=== PATIENT | female | born 1945 | race Caucasian/White ===

== ENCOUNTER 2017-01-20 14:55 | Emergency (ER) | payer OTHER ==
[~2017-01-20] VITALS: Ht 149.9 cm; Wt 75.5 kg
[~2017-01-20 14:55] MED LIST: ACCUNEB0.63 MG/3 IH; AGGRENOX1 CAPSULE PO; ALAVERT10 M1 PO; ALBUTEROL; ANUCORT-HC25 MG RC; Aspirin PO; BACTRIM,SEPT1 TABLET PO; BISACODYL; BUDESONIDE0.5 MG/2 M IH; CHRONULAC,CEPHUL1 ML PO; Ceftin PO; Chronulac,Cephulac,E PO; Colace PO; DAILY VITAMIN1 EAC2 PO; DAILY VITE1 EAC1 PO; DEBROX15 ML BOTH EARS; DILANTIN; DILANTIN50 MG PO; DULCOLAX10 MG PR; DUONEB 2.5-0.5 M3 ML AEROSOL; DUONEBS IH; EAR WAX DROPS15 ML BOTH EARS; ENULOSE10 GM/15 M PO; FLEET ENEMA-AD118 ML PR; FOLIC ACID1 MG PO; FORTICAL,200 INTUNI NS; LACTULOSE10 GM/151 PO; LAMICTAL; LAMICTAL XR100 MG PO; LAMICTAL150 M1 PO; LAMOTRIGINE150 MG PO; LEVOTHROID,SYN0.2 MG PO; LEVOTHYROXINE112 MCG PO; LISINOPRIL; LOPERAMIDE2 MG PO; LORATADINE10 M2 PO; Lotrisone TP; METOCLOPRAMIDE H5 MG PO; METOPROLOL; METOPROLOL SUCC25 MG PO; METRO CREAM 0.745 GM TP; METRONIDAZOLE45 G1 TP; MIACALCIN4 ML NS; MIRALAX17 GM PO; MUCINEX600 MG PO; NYAMYC60 GM TP; OYST-CAL-500500 MG PO; OYSTER SHELL C500 M1 PO; PEDIADERM TA 0115 GM TP; PHENERGAN; PHENERGAN25 MG PR; PRAVACHOL80 MG PO; PRAVASTATIN; PRAVASTATIN SOD80 MG PO; PRINIVIL10 MG PO; PROCTOSOL-HC28.35 GM PR; PROMETHAZINE HC25 M1 PO; PROTONIX40 MG PO; PULMICORT1 MG/2 ML IH; REGLAN; REGLAN5 MG PO; SENNA PLUS TAB1 EACH PO; SSD25GM TP; SYNTHROID112 MCG PO; Synthroid PO; TRIAMCINOLONE A15 GM TP; TRILEPTAL; TRILEPTAL300 MG PO; TYLENOL REGULA325 MG PO; TYLENOL325 M1 PO; VITAMIN D31000 UNIT PO; VITAMIN D32000 UNI1 PO; ZONEGRAN100 MG PO; ZONISAMIDE100 MG PO
[2017-01-20] MEDS ORDERED: AUGMENTIN875 MG PO (16:15)
[2017-01-20] MEDS ORDERED: OFLOXACIN10 ML RIGHT EAR (16:37)
[2017-01-20 16:54] VITALS: BP 133/83
== END 2017-01-20 16:54 | disposition home or self-care (01) ==
LOC: EME 14:55
DX: H60.91 Unspecified otitis externa, right ear (principal); Z88.1 Allergy status to other antibiotic agents; F79 Unspecified intellectual disabilities; E03.9 Hypothyroidism, unspecified; E78.5 Hyperlipidemia, unspecified
CPT/HCPCS: 99281; 99283

== ENCOUNTER 2017-05-09 19:52 | Inpatient (IN) | payer OTHER ==
[~2017-05-09] VITALS: Ht 157.5 cm; Wt 82.0 kg
[~2017-05-09 19:52] MED LIST changes: +AUGMENTIN875 MG PO; +FUROSEMIDE20 MG PO; +MIDODRINE HCL5 MG PO; +OFLOXACIN10 ML RIGHT EAR; +PREDNISONE20 MG PO; +RISPERDAL1 MG PO
[2017-05-09 20:55] LABS: EOSINOPHIL (%) 1.1 % (0-5); EOSINOPHIL COUNT 0.1 K/uL (0-0.3); HEMATOCRIT 37.5 % (36.0-46.0); IMMATURE GRANULOCYTE (%) 1.6 % (0.0-0.7); IMMATURE GRANULOCYTE COUNT 0.2 K/uL; INSTRUMENT ABS NEUTROPHIL CT 9.8 K/uL; LYMPHOCYTE COUNT 0.8 K/uL (1.0-2.8); MCH 33.8 PG (29.0-34.0); MCHC 31.7 G/DL (30.0-36.0); MCV 106.5 FL (83-99); MEAN PLAT.VOLUME 10.5 uM^3 (9.5-12.4); MONOCYTE COUNT 0.6 K/uL (0-0.8); NEUTROPHIL (%) 85.2 % (45-76); NEUTROPHIL COUNT 9.8 K/uL (1.8-6.4); PLATELET COUNT 192 K/uL (156-360); RBC DIS.WIDTH-CV 14.6 % (11.8-14.6); RBC DIS.WIDTH-SD 58.1 % (39-53); RED BLOOD COUNT 3.52 M/uL (3.80-5.20); WHITE BLOOD COUNT 11.5 K/uL (4.1-10.2)
[2017-05-09 21:01] LABS: CHLORIDE 108 mEq/L (99-109); POTASSIUM 4.5 mEq/L (3.7-5.4); SODIUM 137 mEq/L (136-147)
[2017-05-09 21:02] LABS: GLUCOSE 221 mg/dL (70-99)
[2017-05-09 21:04] LABS: ANION GAP 10 MEQ/L (2-14)
[2017-05-09 21:06] LABS: GFR ESTIMATE (CALCULATED) > 59 mL/min/
[2017-05-09 21:07] LABS: UREA NITROGEN (BUN) 24 mg/dL (9-23)
[2017-05-09 21:13] LABS: BASE EXCESS -4.8 mEq/L (-3 to +3); BICARBONATE 20.5 mEq/L (22-26); CARBOXY HGB 1.4 % (0-5); METHEMOGLOBIN 0.8 % (0-1.5); PCO2 38 mm Hg (35-45); pH 7.34 (7.35-7.45)
[2017-05-09 21:14] LABS: COMMENTS - BLOOD GASES A+C+; DEVICE 840VENT; FI02 100 %; MODE SPONT; PEEP 5 CM/H20; PO2 467 mm Hg (80-100); PRES. SUPPORT 10 CM/H2O; SITE RR; TOTAL RESP RATE 30 resp/min
[2017-05-09 21:14] LABS: TROP-I INTERPRETATION NEGATIVE
[2017-05-09] MEDS ORDERED: LASIX20 MG PO (22:38)
[2017-05-10] VITALS (23 sets, daily range): BP systolic 0–122; BP diastolic 0–72
[2017-05-10 01:49] LABS: METH RESISTANT S AUREUS PCR NEGATIVE (NEGATIVE)
[2017-05-10 01:50] LABS: PROBE CHECK PASS; SPECIMEN PROCESSING CONTROL PASS
[2017-05-10 01:51] LABS: ADD MIUA? NO; BILIRUBIN NEGATIVE; BLOOD NEGATIVE; COLOR STRAW ((YELLOW)); GLUCOSE (STRIP) NEGATIVE; KETONES NEGATIVE; LEUKOCYTES NEGATIVE; NITRITE NEGATIVE; PROTEIN (STRIP) NEGATIVE; SPECIFIC GRAVITY 1.005 (1.000-1.030); UROBILINOGEN 0.2 MG/DL (0.2-1.0)
[2017-05-10 14:10] LABS: EOSINOPHIL (%) 0.6 % (0-5); HEMATOCRIT 36.4 % (36.0-46.0); IMMATURE GRANULOCYTE COUNT 0.1 K/uL; LYMPHOCYTE COUNT 0.8 K/uL (1.0-2.8); MCH 34.2 PG (29.0-34.0); MCHC 32.4 G/DL (30.0-36.0); MCV 105.5 FL (83-99); MEAN PLAT.VOLUME 10.5 uM^3 (9.5-12.4); MONOCYTE (%) 3.4 % (3-12); MONOCYTE COUNT 0.2 K/uL (0-0.8); NEUTROPHIL (%) 84.3 % (45-76); PLATELET COUNT 180 K/uL (156-360); RBC DIS.WIDTH-CV 14.4 % (11.8-14.6); RBC DIS.WIDTH-SD 55.9 % (39-53); RED BLOOD COUNT 3.45 M/uL (3.80-5.20); WHITE BLOOD COUNT 7.1 K/uL (4.1-10.2)
[2017-05-10 14:34] LABS: ANION GAP 14 MEQ/L (2-14); CHLORIDE 103 MEQ/L (99-109); GFR ESTIMATE (CALCULATED) > 59 mL/min/; GLUCOSE 227 mg/dL (70-99); SAMPLE HEMOLYSIS CHECK 0; SAMPLE ICTERIC CHECK 0; SAMPLE LIPEMIA CHECK 0; SODIUM 139 MEQ/L (136-147); UREA NITROGEN (BUN) 19 mg/dL (9-23)
[2017-05-10 14:48] LABS: MAGNESIUM 1.8 mg/dl (1.3-2.7); POTASSIUM 3.3 MEQ/L (3.7-5.4)
[2017-05-10 22:24] LABS: POINT-OF-CARE METER ID UU13113731
[2017-05-11] VITALS (12 sets, daily range): BP systolic 65–120; BP diastolic 41–68
[2017-05-11 05:34] LABS: HEMATOCRIT 33.7 % (36.0-46.0); MCH 33.9 PG (29.0-34.0); MCV 105.6 FL (83-99); MEAN PLAT.VOLUME 10.7 uM^3 (9.5-12.4); PLATELET COUNT 166 K/uL (156-360); RBC DIS.WIDTH-CV 14.1 % (11.8-14.6); RBC DIS.WIDTH-SD 55.7 % (39-53); RED BLOOD COUNT 3.19 M/uL (3.80-5.20); WHITE BLOOD COUNT 6.9 K/uL (4.1-10.2)
[2017-05-11 06:18] LABS: ANION GAP 11 MEQ/L (2-14); CHLORIDE 105 MEQ/L (99-109); GFR ESTIMATE (CALCULATED) > 59 mL/min/; GLUCOSE 229 mg/dL (70-99); SAMPLE HEMOLYSIS CHECK 0; SAMPLE ICTERIC CHECK 0; SAMPLE LIPEMIA CHECK 0; SODIUM 143 MEQ/L (136-147); UREA NITROGEN (BUN) 28 mg/dL (9-23)
[2017-05-11 06:19] LABS: POTASSIUM 4.1 MEQ/L (3.7-5.4)
[2017-05-11 12:28] LABS: POINT-OF-CARE METER ID UU14174217
[2017-05-11 16:51] LABS: POINT-OF-CARE METER ID UU14314084
[2017-05-11 21:34] LABS: POINT-OF-CARE METER ID UU14208750
[2017-05-12] VITALS: BP 120/61
[2017-05-12 04:00] VITALS: BP 116/70
[2017-05-12 06:26] LABS: POINT-OF-CARE METER ID UU14208750
[2017-05-12 07:17] VITALS: BP 120/66
[2017-05-12 12:00] VITALS: BP 104/56
[2017-05-12 12:16] LABS: POINT-OF-CARE METER ID UU14208750
[2017-05-12 15:46] VITALS: BP 116/55
[2017-05-12 16:32] LABS: POINT-OF-CARE METER ID UU14314084
[2017-05-12 20:14] VITALS: BP 122/58
[2017-05-12 21:46] LABS: POINT-OF-CARE METER ID UU14208750
[2017-05-12 22:48] LABS: POINT-OF-CARE METER ID UU14208750
[2017-05-13 01:27] VITALS: BP 95/51
[2017-05-13 04:37] VITALS: BP 122/61
[2017-05-13 05:45] LABS: POINT-OF-CARE METER ID UU14208750
[2017-05-13 07:26] LABS: ANION GAP 13 MEQ/L (2-14); CHLORIDE 102 MEQ/L (99-109); GFR ESTIMATE (CALCULATED) > 59 mL/min/; GLUCOSE 195 mg/dL (70-99); POTASSIUM 3.8 MEQ/L (3.7-5.4); SAMPLE HEMOLYSIS CHECK 0; SAMPLE ICTERIC CHECK 0; SAMPLE LIPEMIA CHECK 0; SODIUM 140 MEQ/L (136-147); UREA NITROGEN (BUN) 30 mg/dL (9-23)
[2017-05-13 08:00] VITALS: BP 106/61
[2017-05-13 11:13] VITALS: BP 125/77
[2017-05-13 12:30] LABS: POINT-OF-CARE METER ID UU14314084
[2017-05-13] MEDS ORDERED: LASIX40 MG PO (13:48)
== END 2017-05-13 14:54 | DRG 193 ==
LOC: EME → EDSEX 19:52 → EDBD 19:52 → EME 19:52 → EDOF 22:15 → 2EAST 22:15 → ENRESERV 22:15 → 4WEST 22:15 → ENRESERV 23:14 → 4WEST 23:47 → ENRESERV 05-11 11:16 → 2EAST 05-11 15:18
PROVIDERS: Emergency Medicine; Hospitalist; Specialist; Surgery
DX: J18.9 Pneumonia, unspecified organism (principal); I50.23 Acute on chronic systolic (congestive) heart failure; J96.01 Acute respiratory failure with hypoxia; G40.909 Epilepsy, unspecified, not intractable, without status epilepticus; G80.9 Cerebral palsy, unspecified; I11.0 Hypertensive heart disease with heart failure; E78.5 Hyperlipidemia, unspecified; K21.9 Gastro-esophageal reflux disease without esophagitis; I69.354 Hemiplegia and hemiparesis following cerebral infarction affecting left non-dominant side; E87.2 Acidosis; E03.9 Hypothyroidism, unspecified; D64.9 Anemia, unspecified; M81.0 Age-related osteoporosis without current pathological fracture; L30.4 Erythema intertrigo; Z66 Do not resuscitate; J45.909 Unspecified asthma, uncomplicated; I25.10 Atherosclerotic heart disease of native coronary artery without angina pectoris; H54.7 Unspecified visual loss; F79 Unspecified intellectual disabilities; Z87.01 Personal history of pneumonia (recurrent); H26.9 Unspecified cataract; Z79.52 Long term (current) use of systemic steroids; I25.2 Old myocardial infarction
CPT/HCPCS: 36600; 71010; 80048; 81003; 82803; 82948; 83605; 83735; 83880; 84100; 84484; 85025; 85027; 87086; 87641; 94002; 94003; 94640; 94640 76; 94660; 94760; 94799; 99202; 99281; 99285; C9113; J1650; J1720; J1815; J1940; J2270; J7512

== ENCOUNTER 2017-05-13 14:50 | Inpatient (IN) | payer OTHER ==
[~2017-05-13 14:50] MED LIST changes: +LASIX20 MG PO; +LASIX40 MG PO
[2017-05-13 23:30] VITALS: BP 123/64
[2017-05-14 07:05] VITALS: BP 125/62
[2017-05-14 15:58] VITALS: BP 121/65
[2017-05-15 07:43] VITALS: BP 100/50
[2017-05-15] MEDS ORDERED: LASIX40 MG PO (10:01)
[2017-05-15] MEDS ORDERED: MORPHINE CON20 MG/M1 PO (11:39)
[2017-05-15] MEDS ORDERED: LORAZEPAM0.5 MG PO (11:39)
[2017-05-15] MEDS ORDERED: MIDODRINE HCL5 MG PO (13:13)
[2017-05-15] MEDS ORDERED: LORATADINE10 M2 PO (13:13)
[2017-05-15] MEDS ORDERED: SSD25GM TP (13:13)
[2017-05-15] MEDS ORDERED: ZONISAMIDE100 MG PO (13:13)
[2017-05-15] MEDS ORDERED: TRIAMCINOLONE A15 GM TP (13:13)
[2017-05-15] MEDS ORDERED: LAMOTRIGINE150 MG PO (13:13)
[2017-05-15] MEDS ORDERED: VITAMIN D31000 UNIT PO (13:13)
[2017-05-15] MEDS ORDERED: LEVOTHYROXINE112 MCG PO (13:13)
[2017-05-15] MEDS ORDERED: PROTONIX40 MG PO (13:13)
[2017-05-15] MEDS ORDERED: DUONEB 2.5-0.5 M3 ML AEROSOL (13:13)
[2017-05-15] MEDS ORDERED: TYLENOL REGULA325 MG PO (13:13)
[2017-05-15] MEDS ORDERED: FOLIC ACID1 MG PO (13:13)
[2017-05-15] MEDS ORDERED: MUCINEX600 MG PO (13:13)
[2017-05-15] MEDS ORDERED: EAR WAX DROPS15 ML BOTH EARS (13:13)
[2017-05-15] MEDS ORDERED: BUDESONIDE0.5 MG/2 M IH (13:13)
[2017-05-15] MEDS ORDERED: PRAVASTATIN SOD80 MG PO (13:13)
[2017-05-15] MEDS ORDERED: SENNA PLUS TAB1 EACH PO (13:13)
[2017-05-15] MEDS ORDERED: PREDNISONE20 MG PO (13:13)
[2017-05-15] MEDS ORDERED: OYST-CAL-500500 MG PO (13:13)
[2017-05-15] MEDS ORDERED: RISPERDAL1 MG PO (13:13)
[2017-05-15] MEDS ORDERED: METRONIDAZOLE45 G1 TP (13:13)
[2017-05-15] MEDS ORDERED: AGGRENOX1 CAPSULE PO (13:13)
[2017-05-15] MEDS ORDERED: MIRALAX17 GM PO (13:13)
== END 2017-05-15 18:05 | disposition hospice, home (50) | DRG 291 ==
LOC: ENRESERV 14:50 → 5EAST 14:50 → 2EAST 14:58 → ENRESERV 18:37 → CANRESERV 18:37 → ENRESERV 20:12 → CANRESERV 05-14 02:37 → 2EAST 05-15 18:05
DX: I11.0 Hypertensive heart disease with heart failure (principal); I50.23 Acute on chronic systolic (congestive) heart failure; J96.01 Acute respiratory failure with hypoxia; Z51.5 Encounter for palliative care; Z66 Do not resuscitate; I25.10 Atherosclerotic heart disease of native coronary artery without angina pectoris; I69.354 Hemiplegia and hemiparesis following cerebral infarction affecting left non-dominant side; E03.9 Hypothyroidism, unspecified; D64.9 Anemia, unspecified; M81.0 Age-related osteoporosis without current pathological fracture; F79 Unspecified intellectual disabilities; G80.9 Cerebral palsy, unspecified; R56.9 Unspecified convulsions; Z87.01 Personal history of pneumonia (recurrent)
CPT/HCPCS: 94640; 94640 76; 94660; 94799; J2270; J7512